=== PATIENT | female | born 1955 | race Caucasian/White ===

== ENCOUNTER 2018-05-21 20:15 | Inpatient (IN) | payer MEDICARE, MEDICAID ==
[~2018-05-21] VITALS: Ht 167.6 cm; Wt 59.9 kg
[2018-05-21 20:25] VITALS: BP 143/66
[2018-05-21] MEDS ORDERED: CARISOPRODOL 350 MG TABLET PO PRN (22:15)
[2018-05-21] MEDS ORDERED: BENZONATATE 100MG CAPSULE PO PRN (22:15)
[2018-05-21] MEDS ORDERED: DEXTROSE 50% WATER 50ML SYRINGE IV PRN (22:15)
[2018-05-21] MEDS ORDERED: MORPHINE SULFATE 4 MG/ML CPJ (NOT FOR IM USE) IV PRN (22:15)
[2018-05-21] MEDS ORDERED: IPRATROPIUM/ALBUTEROL 0.5-3(2.5)MG/3ML NEB HHN PRN (22:15)
[2018-05-21] MEDS ORDERED: PHENOL/SODIUM PHENOLATE 1.4% SRPAY 177ML MM PRN (22:15)
[2018-05-21] MEDS ORDERED: ONDANSETRON HCL 4MG/2ML VIAL IV PRN (22:15)
[2018-05-21] MEDS ORDERED: DOCUSATE SODIUM 250MG CAPSULE PO PRN (22:15)
[2018-05-21 22:21] VITALS: BP 143/67
[2018-05-21] MEDS: BLOOD SUGAR DIAGNOSTIC STRIP TEST SCH (22:30)
[2018-05-21] MEDS: INSULIN LISPRO 100 UNITS/ML SUBCUT SCH (22:56)
[2018-05-21] MEDS: FAMOTIDINE 20MG/2ML VIAL IV SCH (22:59)
[2018-05-21] MEDS: FLUTICASONE PROPIONATE 50MCG/SPRAY BOTTLE BOTHNSTRLS SCH (23:00)
[2018-05-21] MEDS: DILTIAZEM HCL 30MG TABLET PO SCH (23:00)
[2018-05-22] MEDS: DILTIAZEM HCL 30MG TABLET PO SCH ×3 (05:18→21:06)
[2018-05-22] MEDS: BLOOD SUGAR DIAGNOSTIC STRIP TEST SCH ×4 (05:52→21:05)
[2018-05-22] MEDS: INSULIN LISPRO 100 UNITS/ML SUBCUT SCH ×4 (06:00→21:17)
[2018-05-22 08:00] VITALS: BP 148/64
[2018-05-22] MEDS: FAMOTIDINE 20MG/2ML VIAL IV SCH (08:21)
[2018-05-22] MEDS: PANTOPRAZOLE 40MG DR TABLET PO SCH (08:45)
[2018-05-22] MEDS ORDERED: LOSARTAN POTASSIUM 50 MG TABLET PO SCH (09:00)
[2018-05-22] MEDS: FLUTICASONE PROPIONATE 50MCG/SPRAY BOTTLE BOTHNSTRLS SCH ×2 (09:41→21:02)
[2018-05-22] MEDS: DOCUSATE SODIUM 100MG CAPSULE PO SCH ×2 (09:42→16:34)
[2018-05-22 15:14] LABS: CHLORIDE 101 mEq/L (98-107)
[2018-05-22 15:20] LABS: BASOPHILS % 0.1 % (0.0-2.0); EOSINOPHILS % 0.2 % (0.0-5.0); HEMATOCRIT. 38.2 % (36.0-48.0); HEMOGLOBIN. 12.5 g/dL (12.0-16.0); LYMPHOCYTES % 15.8 % (20.0-50.0); MEAN CORPUSCULAR HEMOGLOBIN 30.3 pg (28.0-32.0); MEAN PLATELET VOLUME 6.7 fl (7.4-10.4); NEUTROPHILS % 74.9 % (40.0-76.0); PLATELET 615 x1000/uL (130-400); RED BLOOD CELL COUNT 4.11 mill/uL (4.2-5.4); RED CELL DISTRIBUTION WIDTH 15.1 % (11.6-14.6)
[2018-05-22 20:00] VITALS: BP 99/50
[2018-05-22] MEDS: POLYETHYLENE GLYCOL 3350 (17GM) 1 DOSE PACK PO SCH (21:00)
[2018-05-22] MEDS: ACETAMINOPHEN 325MG TABLET PO PRN (21:18)
[2018-05-23 02:34] VITALS: BP 125/61
[2018-05-23] MEDS: HYDROCODONE/ACETAMINOPHEN 5/325MG TABLET PO PRN ×2 (02:34→17:36)
[2018-05-23] MEDS: DILTIAZEM HCL 30MG TABLET PO SCH ×3 (06:00→22:55)
[2018-05-23 06:04] VITALS: BP 97/48
[2018-05-23] MEDS: INSULIN LISPRO 100 UNITS/ML SUBCUT SCH ×4 (06:04→23:41)
[2018-05-23] MEDS: BLOOD SUGAR DIAGNOSTIC STRIP TEST SCH ×4 (06:04→21:00)
[2018-05-23] MEDS: PANTOPRAZOLE 40MG DR TABLET PO SCH (06:05)
[2018-05-23 07:43] VITALS: BP 105/35
[2018-05-23] MEDS: LOSARTAN POTASSIUM 50 MG TABLET PO SCH (09:00)
[2018-05-23] MEDS: DOCUSATE SODIUM 100MG CAPSULE PO SCH ×2 (09:41→17:20)
[2018-05-23] MEDS: FLUTICASONE PROPIONATE 50MCG/SPRAY BOTTLE BOTHNSTRLS SCH ×2 (09:41→21:00)
[2018-05-23] MEDS: GUAIFENESIN-DM 200MG-20MG/10ML UDC PO PRN (12:46)
[2018-05-23 20:00] VITALS: BP 125/65
[2018-05-23] MEDS: POLYETHYLENE GLYCOL 3350 (17GM) 1 DOSE PACK PO SCH (21:00)
[2018-05-24] MEDS: DILTIAZEM HCL 30MG TABLET PO SCH ×2 (06:42→21:08)
[2018-05-24] MEDS: BLOOD SUGAR DIAGNOSTIC STRIP TEST SCH ×4 (06:42→21:09)
[2018-05-24] MEDS: HYDROCODONE/ACETAMINOPHEN 5/325MG TABLET PO PRN ×4 (06:49→23:04)
[2018-05-24 08:00] VITALS: BP 117/62
[2018-05-24] MEDS: INSULIN LISPRO 100 UNITS/ML SUBCUT SCH ×4 (08:37→21:00)
[2018-05-24] MEDS: LOSARTAN POTASSIUM 50 MG TABLET PO SCH (08:48)
[2018-05-24] MEDS: FAMOTIDINE 20MG TABLET PO SCH ×2 (08:48→21:08)
[2018-05-24] MEDS: DOCUSATE SODIUM 100MG CAPSULE PO SCH ×2 (08:48→17:27)
[2018-05-24] MEDS: FLUTICASONE PROPIONATE 50MCG/SPRAY BOTTLE BOTHNSTRLS SCH ×2 (08:59→21:08)
[2018-05-24 09:06] LABS: BASOPHILS % 0.1 % (0.0-2.0); CHLORIDE 105 mEq/L (98-107); EOSINOPHILS % 6.1 % (0.0-5.0); HEMATOCRIT. 37.8 % (36.0-48.0); HEMOGLOBIN. 12.4 g/dL (12.0-16.0); LYMPHOCYTES % 19.6 % (20.0-50.0); MEAN CORPUSCULAR HEMOGLOBIN 30.4 pg (28.0-32.0); MEAN CORPUSCULAR VOLUME 92.8 fL (81.0-99.0); MEAN PLATELET VOLUME 6.6 fl (7.4-10.4); MONOCYTES % 8.2 % (2.0-8.0); PLATELET 502 x1000/uL (130-400); RED BLOOD CELL COUNT 4.08 mill/uL (4.2-5.4)
[2018-05-24 09:11] LABS: PHOSPHORUS 3.2 mg/dL (2.5-4.9)
[2018-05-24 09:12] LABS: LDL CHOLESTEROL 99 mg/dL (5-100); TOTAL IRON BINDING CAPACITY 219 ug/dL (250-450)
[2018-05-24 09:14] LABS: HDL CHOLESTEROL 33 mg/dL (40-59)
[2018-05-24 09:47] LABS: FOLIC ACID (FOLATE) SERUM 8.1 ng/mL (>5.38)
[2018-05-24 13:12] LABS: CLARITY URINE CLEAR (CLEAR); COLOR URINE DARK YELLOW (YELLOW); KETONES URINE 1+ (NEGATIVE); LEUKOCYTE ESTERASE URINE 3+ (NEGATIVE); NITRITE URINE NEGATIVE (NEGATIVE); OCCULT BLOOD URINE NEGATIVE (NEGATIVE); PH URINE 6.5 (4.5-8.0); PROTEIN URINE NEGATIVE (NEGATIVE); SPECIFIC GRAVITY URINE 1.022 (1.005-1.030)
[2018-05-24] MEDS: CYANOCOBALAMIN 1000MCG/ML VIAL IM SCH (17:27)
[2018-05-24] MEDS: FERROUS SULFATE 325MG TABLET PO SCH (17:27)
[2018-05-24] MEDS: LIDOCAINE 5% PATCH TOP SCH (17:28)
[2018-05-24 20:00] VITALS: BP 95/44
[2018-05-24] MEDS: POLYETHYLENE GLYCOL 3350 (17GM) 1 DOSE PACK PO SCH (21:00)
[2018-05-25] MEDS: BLOOD SUGAR DIAGNOSTIC STRIP TEST SCH ×4 (06:43→21:00)
[2018-05-25] MEDS: HYDROCODONE/ACETAMINOPHEN 5/325MG TABLET PO PRN ×2 (06:45→10:57)
[2018-05-25] MEDS: INSULIN LISPRO 100 UNITS/ML SUBCUT SCH ×4 (07:41→22:52)
[2018-05-25 08:00] VITALS: BP 130/50
[2018-05-25] MEDS: ASCORBIC ACID 500 MG TABLET PO SCH (09:13)
[2018-05-25] MEDS: DOCUSATE SODIUM 100MG CAPSULE PO SCH ×2 (09:13→17:21)
[2018-05-25] MEDS: FERROUS SULFATE 325MG TABLET PO SCH ×3 (09:13→17:21)
[2018-05-25] MEDS: FAMOTIDINE 20MG TABLET PO SCH ×2 (09:13→22:11)
[2018-05-25] MEDS: LOSARTAN POTASSIUM 50 MG TABLET PO SCH (09:14)
[2018-05-25] MEDS: CYANOCOBALAMIN 1000MCG/ML VIAL IM SCH (09:14)
[2018-05-25] MEDS: LIDOCAINE 5% PATCH TOP SCH ×2 (09:14→22:11)
[2018-05-25] MEDS: DILTIAZEM HCL 30MG TABLET PO SCH ×2 (09:15→21:00)
[2018-05-25] MEDS: GUAIFENESIN-DM 200MG-20MG/10ML UDC PO PRN (19:51)
[2018-05-25 20:00] VITALS: BP 106/43
[2018-05-25] MEDS ORDERED: LIDOCAINE 5% PATCH TOP SCH ×2 (21:00)
[2018-05-25] MEDS: POLYETHYLENE GLYCOL 3350 (17GM) 1 DOSE PACK PO SCH (22:05)
[2018-05-26] MEDS: BLOOD SUGAR DIAGNOSTIC STRIP TEST SCH ×4 (06:57→21:13)
[2018-05-26] MEDS: INSULIN LISPRO 100 UNITS/ML SUBCUT SCH ×4 (06:59→21:22)
[2018-05-26 08:00] VITALS: BP 127/53
[2018-05-26] MEDS: DILTIAZEM HCL 30MG TABLET PO SCH (08:08)
[2018-05-26] MEDS: CYANOCOBALAMIN 1000MCG/ML VIAL IM SCH (08:09)
[2018-05-26] MEDS: FAMOTIDINE 20MG TABLET PO SCH ×2 (08:10→20:35)
[2018-05-26] MEDS: LOSARTAN POTASSIUM 50 MG TABLET PO SCH (08:10)
[2018-05-26] MEDS: DOCUSATE SODIUM 100MG CAPSULE PO SCH ×2 (08:10→16:46)
[2018-05-26] MEDS: FERROUS SULFATE 325MG TABLET PO SCH ×3 (08:10→16:45)
[2018-05-26] MEDS: ASCORBIC ACID 500 MG TABLET PO SCH (08:10)
[2018-05-26] MEDS: HYDROCODONE/ACETAMINOPHEN 5/325MG TABLET PO PRN (10:39)
[2018-05-26] MEDS ORDERED: NA PHOS,M-B/NA PHOS,DI-BA ENEMA 118ML PR SCH (11:15)
[2018-05-26] MEDS: LACTULOSE 20G/30ML UDC PO SCH ×2 (11:15→16:45)
[2018-05-26] MEDS: AMLODIPINE 2.5MG TABLET PO SCH ×2 (11:24→20:36)
[2018-05-26 20:00] VITALS: BP 100/45
[2018-05-26] MEDS: LIDOCAINE 5% PATCH TOP SCH (20:35)
[2018-05-26] MEDS: POLYETHYLENE GLYCOL 3350 (17GM) 1 DOSE PACK PO SCH (20:36)
[2018-05-27] MEDS: HYDROCODONE/ACETAMINOPHEN 5/325MG TABLET PO PRN ×3 (03:50→22:00)
[2018-05-27] MEDS: BLOOD SUGAR DIAGNOSTIC STRIP TEST SCH ×4 (06:06→21:56)
[2018-05-27] MEDS: INSULIN LISPRO 100 UNITS/ML SUBCUT SCH ×4 (06:48→21:14)
[2018-05-27 08:00] VITALS: BP 102/53
[2018-05-27] MEDS: ASCORBIC ACID 500 MG TABLET PO SCH (08:22)
[2018-05-27] MEDS: CYANOCOBALAMIN 1000MCG/ML VIAL IM SCH (08:22)
[2018-05-27] MEDS: FAMOTIDINE 20MG TABLET PO SCH ×2 (08:22→21:55)
[2018-05-27] MEDS: DOCUSATE SODIUM 100MG CAPSULE PO SCH ×2 (08:22→17:48)
[2018-05-27] MEDS: FERROUS SULFATE 325MG TABLET PO SCH ×3 (08:22→17:48)
[2018-05-27] MEDS: LOSARTAN POTASSIUM 50 MG TABLET PO SCH (08:24)
[2018-05-27] MEDS: AMLODIPINE 2.5MG TABLET PO SCH ×2 (08:25→21:56)
[2018-05-27] MEDS ORDERED: NA PHOS,M-B/NA PHOS,DI-BA ENEMA 118ML PR PRN (09:00)
[2018-05-27] MEDS: GUAIFENESIN-DM 200MG-20MG/10ML UDC PO PRN (18:51)
[2018-05-27 20:00] VITALS: BP 107/48
[2018-05-27] MEDS ORDERED: SENNOSIDES/DOCUSATE SOD 8.6/50MG TABLET PO PRN (21:00)
[2018-05-27] MEDS: LIDOCAINE 5% PATCH TOP SCH (21:56)
[2018-05-27] MEDS: POLYETHYLENE GLYCOL 3350 (17GM) 1 DOSE PACK PO SCH (21:59)
[2018-05-28] MEDS: HYDROCODONE/ACETAMINOPHEN 5/325MG TABLET PO PRN ×3 (05:24→21:15)
[2018-05-28] MEDS: BLOOD SUGAR DIAGNOSTIC STRIP TEST SCH ×4 (06:08→21:15)
[2018-05-28 07:38] LABS: CHLORIDE 107 mEq/L (98-107)
[2018-05-28 08:00] VITALS: BP 138/54
[2018-05-28] MEDS: LOSARTAN POTASSIUM 50 MG TABLET PO SCH (09:00)
[2018-05-28] MEDS: CYANOCOBALAMIN 1000MCG/ML VIAL IM SCH (09:00)
[2018-05-28] MEDS: FERROUS SULFATE 325MG TABLET PO SCH ×3 (09:00→16:46)
[2018-05-28] MEDS: INSULIN LISPRO 100 UNITS/ML SUBCUT SCH ×4 (09:00→21:30)
[2018-05-28] MEDS: DOCUSATE SODIUM 100MG CAPSULE PO SCH ×2 (09:00→16:46)
[2018-05-28] MEDS: AMLODIPINE 2.5MG TABLET PO SCH ×2 (09:01→21:15)
[2018-05-28] MEDS: FAMOTIDINE 20MG TABLET PO SCH ×2 (09:01→21:15)
[2018-05-28] MEDS: ASCORBIC ACID 500 MG TABLET PO SCH (09:01)
[2018-05-28 12:10] LABS: BASOPHILS % 0.9 % (0.0-2.0); EOSINOPHILS % 4.9 % (0.0-5.0); HEMATOCRIT. 34.4 % (36.0-48.0); HEMOGLOBIN. 11.3 g/dL (12.0-16.0); LYMPHOCYTES % 16.1 % (20.0-50.0); MEAN CORPUSCULAR HEMOGLOBIN 30.5 pg (28.0-32.0); MEAN CORPUSCULAR VOLUME 92.9 fL (81.0-99.0); MEAN PLATELET VOLUME 7.3 fl (7.4-10.4); MONOCYTES % 13.1 % (2.0-8.0); PLATELET 359 x1000/uL (130-400); RED CELL DISTRIBUTION WIDTH 15.8 % (11.6-14.6)
[2018-05-28 14:18] LABS: 25-HYDROXY VITAMIN D3 19 ng/mL (.)
[2018-05-28 20:00] VITALS: BP 119/50
[2018-05-28] MEDS: POLYETHYLENE GLYCOL 3350 (17GM) 1 DOSE PACK PO SCH (21:13)
[2018-05-28] MEDS: LIDOCAINE 5% PATCH TOP SCH (21:14)
[2018-05-29] MEDS: HYDROCODONE/ACETAMINOPHEN 5/325MG TABLET PO PRN ×2 (05:57→16:58)
[2018-05-29] MEDS: BLOOD SUGAR DIAGNOSTIC STRIP TEST SCH ×4 (05:57→21:35)
[2018-05-29 06:58] LABS: BASOPHILS % 0.9 % (0.0-2.0); EOSINOPHILS % 7.5 % (0.0-5.0); HEMATOCRIT. 33.6 % (36.0-48.0); HEMOGLOBIN. 11.2 g/dL (12.0-16.0); LYMPHOCYTES % 31.1 % (20.0-50.0); MEAN CORPUSCULAR HEMOGLOBIN 30.8 pg (28.0-32.0); MEAN CORPUSCULAR VOLUME 92.5 fL (81.0-99.0); MEAN PLATELET VOLUME 7.4 fl (7.4-10.4); MONOCYTES % 14.8 % (2.0-8.0); NEUTROPHILS % 45.7 % (40.0-76.0); PLATELET 346 x1000/uL (130-400); RED BLOOD CELL COUNT 3.63 mill/uL (4.2-5.4)
[2018-05-29 07:47] LABS: CHLORIDE 106 mEq/L (98-107)
[2018-05-29 08:00] VITALS: BP 125/54
[2018-05-29 08:01] LABS: PHOSPHORUS 4.1 mg/dL (2.5-4.9)
[2018-05-29] MEDS: CYANOCOBALAMIN 1000MCG/ML VIAL IM SCH (08:12)
[2018-05-29] MEDS: DOCUSATE SODIUM 100MG CAPSULE PO SCH ×2 (08:12→16:58)
[2018-05-29] MEDS: ASCORBIC ACID 500 MG TABLET PO SCH (08:12)
[2018-05-29] MEDS: FERROUS SULFATE 325MG TABLET PO SCH ×3 (08:12→16:58)
[2018-05-29] MEDS: LOSARTAN POTASSIUM 50 MG TABLET PO SCH (08:12)
[2018-05-29] MEDS: FAMOTIDINE 20MG TABLET PO SCH ×2 (08:12→21:34)
[2018-05-29] MEDS: AMLODIPINE 2.5MG TABLET PO SCH ×2 (08:13→21:34)
[2018-05-29] MEDS: INSULIN LISPRO 100 UNITS/ML SUBCUT SCH ×4 (08:14→21:39)
[2018-05-29] MEDS ORDERED: LIDOCAINE 5% PATCH TOP SCH (10:00)
[2018-05-29] MEDS ORDERED: ERGOCALCIFEROL 50000UNITS CAPSULE PO SCH (10:00)
[2018-05-29] MEDS: ERGOCALCIFEROL 50000UNITS CAPSULE PO SCH (10:42)
[2018-05-29] MEDS: LACTULOSE 20G/30ML UDC PO SCH ×3 (10:43→17:00)
[2018-05-29 20:00] VITALS: BP 120/78
[2018-05-29] MEDS: POLYETHYLENE GLYCOL 3350 (17GM) 1 DOSE PACK PO SCH (21:00)
[2018-05-29] MEDS: LIDOCAINE 5% PATCH TOP SCH (21:34)
[2018-05-30] MEDS: HYDROCODONE/ACETAMINOPHEN 5/325MG TABLET PO PRN ×2 (01:12→08:23)
[2018-05-30 06:41] LABS: EOSINOPHILS % 6.8 % (0.0-5.0); HEMOGLOBIN. 11.2 g/dL (12.0-16.0); LYMPHOCYTES % 26.1 % (20.0-50.0); MEAN CORPUSCULAR HEMOGLOBIN 30.3 pg (28.0-32.0); MEAN CORPUSCULAR VOLUME 92.1 fL (81.0-99.0); MEAN PLATELET VOLUME 7.1 fl (7.4-10.4); MONOCYTES % 14.5 % (2.0-8.0); NEUTROPHILS % 51.6 % (40.0-76.0); PLATELET 339 x1000/uL (130-400); RED BLOOD CELL COUNT 3.69 mill/uL (4.2-5.4); RED CELL DISTRIBUTION WIDTH 15.8 % (11.6-14.6)
[2018-05-30 07:31] LABS: CHLORIDE 104 mEq/L (98-107)
[2018-05-30 07:53] VITALS: BP 146/77
[2018-05-30] MEDS: CYANOCOBALAMIN 1000MCG/ML VIAL IM SCH (08:22)
[2018-05-30] MEDS: LOSARTAN POTASSIUM 50 MG TABLET PO SCH (08:22)
[2018-05-30] MEDS: ASCORBIC ACID 500 MG TABLET PO SCH (08:22)
[2018-05-30] MEDS: FERROUS SULFATE 325MG TABLET PO SCH ×3 (08:22→16:46)
[2018-05-30] MEDS: AMLODIPINE 2.5MG TABLET PO SCH ×2 (08:22→20:40)
[2018-05-30] MEDS: DOCUSATE SODIUM 100MG CAPSULE PO SCH ×2 (08:22→16:46)
[2018-05-30] MEDS: FAMOTIDINE 20MG TABLET PO SCH ×2 (08:29→20:39)
[2018-05-30] MEDS: INSULIN LISPRO 100 UNITS/ML SUBCUT SCH ×4 (09:00→21:19)
[2018-05-30] MEDS: TRAMADOL HCL/ACETAMINOPHEN 37.5/325MG TABLET PO SCH ×3 (09:30→16:46)
[2018-05-30] MEDS: BLOOD SUGAR DIAGNOSTIC STRIP TEST SCH ×3 (11:15→21:09)
[2018-05-30] MEDS: POLYETHYLENE GLYCOL 3350 (17GM) 1 DOSE PACK PO SCH (19:08)
[2018-05-30 20:00] VITALS: BP 97/63
[2018-05-30] MEDS: LIDOCAINE 5% PATCH TOP SCH (20:40)
[2018-05-31] MEDS: HYDROCODONE/ACETAMINOPHEN 5/325MG TABLET PO PRN (02:38)
[2018-05-31] MEDS: BLOOD SUGAR DIAGNOSTIC STRIP TEST SCH ×4 (06:12→21:19)
[2018-05-31] MEDS: INSULIN LISPRO 100 UNITS/ML SUBCUT SCH ×4 (06:30→22:02)
[2018-05-31 08:00] VITALS: BP 117/46
[2018-05-31] MEDS: AMLODIPINE 2.5MG TABLET PO SCH ×2 (08:30→21:00)
[2018-05-31] MEDS: FERROUS SULFATE 325MG TABLET PO SCH ×3 (08:30→17:42)
[2018-05-31] MEDS: FAMOTIDINE 20MG TABLET PO SCH ×2 (08:31→21:14)
[2018-05-31] MEDS: ASCORBIC ACID 500 MG TABLET PO SCH (08:31)
[2018-05-31] MEDS: TRAMADOL HCL/ACETAMINOPHEN 37.5/325MG TABLET PO SCH ×3 (08:32→17:49)
[2018-05-31] MEDS: LOSARTAN POTASSIUM 50 MG TABLET PO SCH (08:38)
[2018-05-31] MEDS: POLYETHYLENE GLYCOL 3350 (17GM) 1 DOSE PACK PO SCH ×2 (10:27→17:49)
[2018-05-31] MEDS: DOCUSATE SODIUM 100MG CAPSULE PO SCH ×2 (10:27→17:49)
[2018-05-31 13:00] VITALS: BP 121/64
[2018-05-31] MEDS: LACTULOSE 20G/30ML UDC PO SCH ×2 (15:17→21:14)
[2018-05-31] MEDS: BISACODYL 10MG SUPP PR SCH (15:30)
[2018-05-31 20:00] VITALS: BP 109/35
[2018-05-31] MEDS: LIDOCAINE 5% PATCH TOP SCH (21:15)
[2018-06-01] MEDS: BLOOD SUGAR DIAGNOSTIC STRIP TEST SCH ×4 (06:18→21:00)
[2018-06-01] MEDS: INSULIN LISPRO 100 UNITS/ML SUBCUT SCH ×4 (06:45→21:00)
[2018-06-01] MEDS: LOSARTAN POTASSIUM 50 MG TABLET PO SCH (07:52)
[2018-06-01] MEDS: AMLODIPINE 2.5MG TABLET PO SCH ×2 (07:53→21:00)
[2018-06-01] MEDS: BISACODYL 10MG SUPP PR SCH (07:53)
[2018-06-01] MEDS: POLYETHYLENE GLYCOL 3350 (17GM) 1 DOSE PACK PO SCH ×2 (07:53→17:06)
[2018-06-01] MEDS: ASCORBIC ACID 500 MG TABLET PO SCH (07:54)
[2018-06-01] MEDS: FAMOTIDINE 20MG TABLET PO SCH ×2 (07:55→22:20)
[2018-06-01] MEDS: DOCUSATE SODIUM 100MG CAPSULE PO SCH ×2 (07:55→17:06)
[2018-06-01] MEDS: TRAMADOL HCL/ACETAMINOPHEN 37.5/325MG TABLET PO SCH ×3 (07:55→17:08)
[2018-06-01] MEDS: FERROUS SULFATE 325MG TABLET PO SCH ×3 (07:55→17:06)
[2018-06-01 08:00] VITALS: BP 111/32
[2018-06-01 20:00] VITALS: BP 105/56
[2018-06-01] MEDS: GABAPENTIN 100MG CAPSULE PO SCH (22:20)
[2018-06-01] MEDS: LIDOCAINE 5% PATCH TOP SCH (22:20)
[2018-06-02] MEDS: BLOOD SUGAR DIAGNOSTIC STRIP TEST SCH ×4 (07:03→21:53)
[2018-06-02] MEDS: GABAPENTIN 100MG CAPSULE PO SCH ×2 (07:03→13:00)
[2018-06-02] MEDS: INSULIN LISPRO 100 UNITS/ML SUBCUT SCH ×4 (07:04→21:00)
[2018-06-02 07:51] LABS: BASOPHILS % 1.3 % (0.0-2.0); EOSINOPHILS % 6.5 % (0.0-5.0); HEMATOCRIT. 33.7 % (36.0-48.0); HEMOGLOBIN. 11.1 g/dL (12.0-16.0); LYMPHOCYTES % 22.8 % (20.0-50.0); MEAN CORPUSCULAR HEMOGLOBIN 30.4 pg (28.0-32.0); MEAN CORPUSCULAR VOLUME 92.1 fL (81.0-99.0); MEAN PLATELET VOLUME 7.1 fl (7.4-10.4); MONOCYTES % 8.3 % (2.0-8.0); NEUTROPHILS % 61.1 % (40.0-76.0); PLATELET 330 x1000/uL (130-400); RED BLOOD CELL COUNT 3.67 mill/uL (4.2-5.4); RED CELL DISTRIBUTION WIDTH 16.1 % (11.6-14.6)
[2018-06-02 08:00] VITALS: BP 136/47
[2018-06-02 08:02] LABS: CHLORIDE 107 mEq/L (98-107)
[2018-06-02] MEDS: BISACODYL 10MG SUPP PR SCH (09:00)
[2018-06-02] MEDS: FAMOTIDINE 20MG TABLET PO SCH ×2 (09:27→21:52)
[2018-06-02] MEDS: DOCUSATE SODIUM 100MG CAPSULE PO SCH ×2 (09:27→17:19)
[2018-06-02] MEDS: FERROUS SULFATE 325MG TABLET PO SCH ×3 (09:27→17:19)
[2018-06-02] MEDS: ASCORBIC ACID 500 MG TABLET PO SCH (09:27)
[2018-06-02] MEDS: POLYETHYLENE GLYCOL 3350 (17GM) 1 DOSE PACK PO SCH ×2 (09:28→17:19)
[2018-06-02] MEDS: LOSARTAN POTASSIUM 50 MG TABLET PO SCH (09:28)
[2018-06-02] MEDS: AMLODIPINE 2.5MG TABLET PO SCH ×2 (09:28→21:52)
[2018-06-02] MEDS: TRAMADOL HCL/ACETAMINOPHEN 37.5/325MG TABLET PO SCH ×3 (09:29→17:19)
[2018-06-02] MEDS: PREGABALIN 25MG CAPSULE PO SCH ×2 (13:00→17:19)
[2018-06-02 20:00] VITALS: BP 127/45
[2018-06-02] MEDS: LIDOCAINE 5% PATCH TOP SCH (21:53)
[2018-06-03] MEDS: BLOOD SUGAR DIAGNOSTIC STRIP TEST SCH ×4 (06:30→21:22)
[2018-06-03 08:00] VITALS: BP 132/63
[2018-06-03] MEDS: FERROUS SULFATE 325MG TABLET PO SCH ×3 (08:48→17:16)
[2018-06-03] MEDS: DOCUSATE SODIUM 100MG CAPSULE PO SCH ×2 (08:48→17:16)
[2018-06-03] MEDS: FAMOTIDINE 20MG TABLET PO SCH ×2 (08:48→20:54)
[2018-06-03] MEDS: ASCORBIC ACID 500 MG TABLET PO SCH (08:48)
[2018-06-03] MEDS: LOSARTAN POTASSIUM 50 MG TABLET PO SCH (08:48)
[2018-06-03] MEDS: AMLODIPINE 2.5MG TABLET PO SCH ×2 (08:49→20:54)
[2018-06-03] MEDS: POLYETHYLENE GLYCOL 3350 (17GM) 1 DOSE PACK PO SCH ×2 (08:49→17:16)
[2018-06-03] MEDS: PREGABALIN 25MG CAPSULE PO SCH ×3 (08:49→17:16)
[2018-06-03] MEDS: INSULIN LISPRO 100 UNITS/ML SUBCUT SCH ×4 (08:50→21:36)
[2018-06-03] MEDS: OXYCODONE HCL 5MG TABLET PO SCH ×3 (08:52→20:55)
[2018-06-03] MEDS: BISACODYL 10MG SUPP PR SCH (08:57)
[2018-06-03] MEDS: GUAIFENESIN-DM 200MG-20MG/10ML UDC PO PRN (08:57)
[2018-06-03 20:00] VITALS: BP 132/44
[2018-06-03] MEDS: LIDOCAINE 5% PATCH TOP SCH (20:55)
[2018-06-04] MEDS: OXYCODONE HCL 5MG TABLET PO SCH ×4 (02:45→21:53)
[2018-06-04] MEDS: BLOOD SUGAR DIAGNOSTIC STRIP TEST SCH ×4 (06:23→21:38)
[2018-06-04] MEDS: INSULIN LISPRO 100 UNITS/ML SUBCUT SCH ×4 (06:55→22:01)
[2018-06-04 08:00] VITALS: BP 109/58
[2018-06-04] MEDS: FAMOTIDINE 20MG TABLET PO SCH ×2 (08:15→21:52)
[2018-06-04] MEDS: FERROUS SULFATE 325MG TABLET PO SCH ×3 (08:17→18:44)
[2018-06-04] MEDS: DOCUSATE SODIUM 100MG CAPSULE PO SCH ×2 (08:17→18:45)
[2018-06-04] MEDS: PREGABALIN 25MG CAPSULE PO SCH ×3 (08:17→18:44)
[2018-06-04] MEDS: ASCORBIC ACID 500 MG TABLET PO SCH (08:17)
[2018-06-04] MEDS: BISACODYL 10MG SUPP PR SCH ×2 (08:17→08:23)
[2018-06-04] MEDS: POLYETHYLENE GLYCOL 3350 (17GM) 1 DOSE PACK PO SCH ×2 (08:23→18:45)
[2018-06-04] MEDS: AMLODIPINE 2.5MG TABLET PO SCH ×3 (08:24→21:52)
[2018-06-04] MEDS: LOSARTAN POTASSIUM 50 MG TABLET PO SCH ×2 (08:24→09:44)
[2018-06-04] MEDS: HYDROCODONE/ACETAMINOPHEN 5/325MG TABLET PO PRN (13:32)
[2018-06-04 20:00] VITALS: BP 121/52
[2018-06-04] MEDS: LIDOCAINE 5% PATCH TOP SCH (21:53)
[2018-06-05] MEDS: OXYCODONE HCL 5MG TABLET PO SCH ×4 (03:00→21:00)
[2018-06-05] MEDS: BLOOD SUGAR DIAGNOSTIC STRIP TEST SCH ×4 (06:48→21:00)
[2018-06-05 07:39] LABS: BASOPHILS % 0.9 % (0.0-2.0); EOSINOPHILS % 8.7 % (0.0-5.0); HEMATOCRIT. 33.6 % (36.0-48.0); HEMOGLOBIN. 11.2 g/dL (12.0-16.0); MEAN CORPUSCULAR HEMOGLOBIN 30.5 pg (28.0-32.0); MEAN CORPUSCULAR VOLUME 91.5 fL (81.0-99.0); MONOCYTES % 9.4 % (2.0-8.0); PLATELET 279 x1000/uL (130-400); RED BLOOD CELL COUNT 3.67 mill/uL (4.2-5.4); RED CELL DISTRIBUTION WIDTH 15.6 % (11.6-14.6)
[2018-06-05 08:00] VITALS: BP 107/53
[2018-06-05] MEDS: LOSARTAN POTASSIUM 50 MG TABLET PO SCH (09:00)
[2018-06-05] MEDS: AMLODIPINE 2.5MG TABLET PO SCH ×2 (09:00→21:00)
[2018-06-05] MEDS: BISACODYL 10MG SUPP PR SCH (09:00)
[2018-06-05] MEDS: ERGOCALCIFEROL 50000UNITS CAPSULE PO SCH (09:04)
[2018-06-05] MEDS: POLYETHYLENE GLYCOL 3350 (17GM) 1 DOSE PACK PO SCH ×2 (09:04→18:24)
[2018-06-05] MEDS: PREGABALIN 25MG CAPSULE PO SCH ×3 (09:04→18:17)
[2018-06-05] MEDS: DOCUSATE SODIUM 100MG CAPSULE PO SCH ×2 (09:05→18:23)
[2018-06-05] MEDS: FERROUS SULFATE 325MG TABLET PO SCH ×3 (09:05→18:16)
[2018-06-05] MEDS: ASCORBIC ACID 500 MG TABLET PO SCH (09:05)
[2018-06-05] MEDS: FAMOTIDINE 20MG TABLET PO SCH ×2 (09:05→22:27)
[2018-06-05 10:15] LABS: CHLORIDE 106 mEq/L (98-107)
[2018-06-05] MEDS: HYDROCODONE/ACETAMINOPHEN 5/325MG TABLET PO PRN (12:49)
[2018-06-05] MEDS: INSULIN LISPRO 100 UNITS/ML SUBCUT SCH ×3 (13:44→21:00)
[2018-06-05 20:00] VITALS: BP 141/74
[2018-06-05] MEDS: LIDOCAINE 5% PATCH TOP SCH (21:00)
[2018-06-06] MEDS: OXYCODONE HCL 5MG TABLET PO SCH ×4 (04:42→21:00)
[2018-06-06] MEDS: BLOOD SUGAR DIAGNOSTIC STRIP TEST SCH ×4 (06:52→21:58)
[2018-06-06] MEDS: INSULIN LISPRO 100 UNITS/ML SUBCUT SCH ×4 (06:53→21:00)
[2018-06-06 07:28] LABS: BASOPHILS % 0.9 % (0.0-2.0); EOSINOPHILS % 8.5 % (0.0-5.0); HEMATOCRIT. 33.7 % (36.0-48.0); HEMOGLOBIN. 10.9 g/dL (12.0-16.0); LYMPHOCYTES % 18.4 % (20.0-50.0); MEAN CORPUSCULAR HEMOGLOBIN 29.8 pg (28.0-32.0); MEAN CORPUSCULAR VOLUME 92.2 fL (81.0-99.0); MEAN PLATELET VOLUME 7.1 fl (7.4-10.4); MONOCYTES % 8.9 % (2.0-8.0); NEUTROPHILS % 63.3 % (40.0-76.0); PLATELET 268 x1000/uL (130-400); RED BLOOD CELL COUNT 3.65 mill/uL (4.2-5.4); RED CELL DISTRIBUTION WIDTH 15.8 % (11.6-14.6)
[2018-06-06 08:00] VITALS: BP 135/63
[2018-06-06 08:00] LABS: CHLORIDE 106 mEq/L (98-107)
[2018-06-06] MEDS: BISACODYL 10MG SUPP PR SCH (09:00)
[2018-06-06] MEDS ORDERED: CYANOCOBALAMIN 1000MCG/ML VIAL IM SCH (09:00)
[2018-06-06] MEDS: POLYETHYLENE GLYCOL 3350 (17GM) 1 DOSE PACK PO SCH ×2 (09:16→17:00)
[2018-06-06] MEDS: DOCUSATE SODIUM 100MG CAPSULE PO SCH ×2 (09:17→18:58)
[2018-06-06] MEDS: PREGABALIN 25MG CAPSULE PO SCH (09:19)
[2018-06-06] MEDS: FAMOTIDINE 20MG TABLET PO SCH ×2 (09:19→21:56)
[2018-06-06] MEDS: AMLODIPINE 2.5MG TABLET PO SCH ×2 (09:19→21:56)
[2018-06-06] MEDS: FERROUS SULFATE 325MG TABLET PO SCH ×3 (09:20→18:58)
[2018-06-06] MEDS: ASCORBIC ACID 500 MG TABLET PO SCH (09:20)
[2018-06-06] MEDS: LOSARTAN POTASSIUM 50 MG TABLET PO SCH (13:07)
[2018-06-06 20:00] VITALS: BP 120/78
[2018-06-06] MEDS: ACETAMINOPHEN 325MG TABLET PO PRN (21:57)
[2018-06-06] MEDS: LIDOCAINE 5% PATCH TOP SCH (21:57)
[2018-06-07] MEDS: BLOOD SUGAR DIAGNOSTIC STRIP TEST SCH ×4 (06:34→20:50)
[2018-06-07] MEDS: OXYCODONE HCL 5MG TABLET PO SCH ×4 (06:35→20:45)
[2018-06-07 08:00] VITALS: BP 135/69
[2018-06-07] MEDS: ASCORBIC ACID 500 MG TABLET PO SCH (08:53)
[2018-06-07] MEDS: FERROUS SULFATE 325MG TABLET PO SCH ×3 (08:53→17:06)
[2018-06-07] MEDS: FAMOTIDINE 20MG TABLET PO SCH ×2 (08:53→20:45)
[2018-06-07] MEDS: DOCUSATE SODIUM 100MG CAPSULE PO SCH ×2 (08:53→17:05)
[2018-06-07] MEDS: POLYETHYLENE GLYCOL 3350 (17GM) 1 DOSE PACK PO SCH ×2 (08:54→17:06)
[2018-06-07] MEDS: LOSARTAN POTASSIUM 50 MG TABLET PO SCH (08:54)
[2018-06-07] MEDS: INSULIN LISPRO 100 UNITS/ML SUBCUT SCH ×4 (08:54→21:34)
[2018-06-07] MEDS: BISACODYL 10MG SUPP PR SCH (08:55)
[2018-06-07] MEDS: AMLODIPINE 2.5MG TABLET PO SCH ×2 (09:00→20:45)
[2018-06-07] MEDS: GUAIFENESIN-DM 200MG-20MG/10ML UDC PO PRN (11:05)
[2018-06-07 20:00] VITALS: BP 100/45
[2018-06-07] MEDS: LIDOCAINE 5% PATCH TOP SCH (20:45)
[2018-06-08] MEDS: OXYCODONE HCL 5MG TABLET PO SCH ×2 (02:40→09:39)
[2018-06-08] MEDS: BLOOD SUGAR DIAGNOSTIC STRIP TEST SCH ×4 (06:08→21:00)
[2018-06-08] MEDS: INSULIN LISPRO 100 UNITS/ML SUBCUT SCH ×4 (06:34→22:42)
[2018-06-08] MEDS: HYDROCODONE/ACETAMINOPHEN 5/325MG TABLET PO PRN ×2 (06:54→17:45)
[2018-06-08 07:52] LABS: BASOPHILS % 0.8 % (0.0-2.0); EOSINOPHILS % 7.2 % (0.0-5.0); HEMATOCRIT. 37.7 % (36.0-48.0); HEMOGLOBIN. 12.3 g/dL (12.0-16.0); LYMPHOCYTES % 22.8 % (20.0-50.0); MEAN CORPUSCULAR HEMOGLOBIN 29.8 pg (28.0-32.0); MEAN CORPUSCULAR VOLUME 91.6 fL (81.0-99.0); MEAN PLATELET VOLUME 6.9 fl (7.4-10.4); MONOCYTES % 10.3 % (2.0-8.0); NEUTROPHILS % 58.9 % (40.0-76.0); PLATELET 348 x1000/uL (130-400); RED BLOOD CELL COUNT 4.11 mill/uL (4.2-5.4); RED CELL DISTRIBUTION WIDTH 15.5 % (11.6-14.6)
[2018-06-08 08:00] VITALS: BP 124/66
[2018-06-08 08:01] LABS: CHLORIDE 105 mEq/L (98-107)
[2018-06-08] MEDS: BISACODYL 10MG SUPP PR SCH (09:00)
[2018-06-08] MEDS: DOCUSATE SODIUM 100MG CAPSULE PO SCH ×2 (09:34→17:44)
[2018-06-08] MEDS: LOSARTAN POTASSIUM 50 MG TABLET PO SCH (09:34)
[2018-06-08] MEDS: POLYETHYLENE GLYCOL 3350 (17GM) 1 DOSE PACK PO SCH ×2 (09:34→17:44)
[2018-06-08] MEDS: ASCORBIC ACID 500 MG TABLET PO SCH (09:34)
[2018-06-08] MEDS: AMLODIPINE 2.5MG TABLET PO SCH ×2 (09:35→22:24)
[2018-06-08] MEDS: FERROUS SULFATE 325MG TABLET PO SCH ×3 (09:35→17:44)
[2018-06-08] MEDS: FAMOTIDINE 20MG TABLET PO SCH ×2 (09:35→22:19)
[2018-06-08 20:08] VITALS: BP 107/55
[2018-06-08] MEDS: LIDOCAINE 5% PATCH TOP SCH (22:25)
[2018-06-08] MEDS: ACETAMINOPHEN 325MG TABLET PO PRN (22:40)
[2018-06-09 08:00] VITALS: BP 141/66
[2018-06-09] MEDS: AMLODIPINE 2.5MG TABLET PO SCH ×2 (08:25→21:12)
[2018-06-09] MEDS: LOSARTAN POTASSIUM 50 MG TABLET PO SCH (08:27)
[2018-06-09] MEDS: ASCORBIC ACID 500 MG TABLET PO SCH (08:27)
[2018-06-09] MEDS: INSULIN LISPRO 100 UNITS/ML SUBCUT SCH ×4 (08:27→21:31)
[2018-06-09] MEDS: BISACODYL 10MG SUPP PR SCH (08:27)
[2018-06-09] MEDS: FAMOTIDINE 20MG TABLET PO SCH ×2 (08:27→21:12)
[2018-06-09] MEDS: TRAMADOL HCL/ACETAMINOPHEN 37.5/325MG TABLET PO SCH ×3 (08:27→17:24)
[2018-06-09] MEDS: POLYETHYLENE GLYCOL 3350 (17GM) 1 DOSE PACK PO SCH ×2 (08:27→17:23)
[2018-06-09] MEDS: DOCUSATE SODIUM 100MG CAPSULE PO SCH ×2 (08:27→17:23)
[2018-06-09] MEDS: FERROUS SULFATE 325MG TABLET PO SCH ×3 (08:27→17:23)
[2018-06-09] MEDS: BLOOD SUGAR DIAGNOSTIC STRIP TEST SCH ×3 (12:07→21:13)
[2018-06-09 20:00] VITALS: BP 121/67
[2018-06-09] MEDS: LIDOCAINE 5% PATCH TOP SCH (21:12)
[2018-06-10] MEDS: BLOOD SUGAR DIAGNOSTIC STRIP TEST SCH ×4 (06:08→21:00)
[2018-06-10] MEDS: ACETAMINOPHEN 325MG TABLET PO PRN (06:44)
[2018-06-10 08:00] VITALS: BP 111/50
[2018-06-10] MEDS: FAMOTIDINE 20MG TABLET PO SCH ×2 (08:45→22:01)
[2018-06-10] MEDS: ASCORBIC ACID 500 MG TABLET PO SCH (08:46)
[2018-06-10] MEDS: DOCUSATE SODIUM 100MG CAPSULE PO SCH ×2 (08:46→17:38)
[2018-06-10] MEDS: FERROUS SULFATE 325MG TABLET PO SCH ×3 (08:46→17:38)
[2018-06-10] MEDS: LOSARTAN POTASSIUM 50 MG TABLET PO SCH (08:49)
[2018-06-10] MEDS: TRAMADOL HCL/ACETAMINOPHEN 37.5/325MG TABLET PO SCH ×3 (08:49→17:40)
[2018-06-10] MEDS: AMLODIPINE 2.5MG TABLET PO SCH ×2 (08:54→21:00)
[2018-06-10] MEDS: BISACODYL 10MG SUPP PR SCH (08:55)
[2018-06-10] MEDS: INSULIN LISPRO 100 UNITS/ML SUBCUT SCH ×4 (08:56→21:00)
[2018-06-10] MEDS: POLYETHYLENE GLYCOL 3350 (17GM) 1 DOSE PACK PO SCH ×2 (08:57→17:38)
[2018-06-10 20:00] VITALS: BP 106/50
[2018-06-10] MEDS: LIDOCAINE 5% PATCH TOP SCH (22:11)
[2018-06-11] MEDS: BLOOD SUGAR DIAGNOSTIC STRIP TEST SCH ×3 (06:59→17:27)
[2018-06-11 07:00] VITALS: BP 112/50
[2018-06-11] MEDS: INSULIN LISPRO 100 UNITS/ML SUBCUT SCH ×3 (07:00→17:00)
[2018-06-11] MEDS: ACETAMINOPHEN 325MG TABLET PO PRN (07:08)
[2018-06-11] MEDS: AMLODIPINE 2.5MG TABLET PO SCH (08:24)
[2018-06-11] MEDS: LOSARTAN POTASSIUM 50 MG TABLET PO SCH (08:24)
[2018-06-11] MEDS: ASCORBIC ACID 500 MG TABLET PO SCH (08:25)
[2018-06-11] MEDS: FERROUS SULFATE 325MG TABLET PO SCH ×3 (08:25→17:23)
[2018-06-11] MEDS: DOCUSATE SODIUM 100MG CAPSULE PO SCH ×2 (08:25→17:23)
[2018-06-11] MEDS: POLYETHYLENE GLYCOL 3350 (17GM) 1 DOSE PACK PO SCH ×2 (08:26→17:00)
[2018-06-11] MEDS: FAMOTIDINE 20MG TABLET PO SCH (08:26)
[2018-06-11] MEDS: BISACODYL 10MG SUPP PR SCH (08:27)
[2018-06-11] MEDS: TRAMADOL HCL/ACETAMINOPHEN 37.5/325MG TABLET PO SCH ×3 (08:48→17:25)
[2018-06-11] MEDS ORDERED: ASCO500T20 PO (12:09)
[2018-06-11] MEDS ORDERED: POLY17PO3 PO (12:09)
[2018-06-11] MEDS ORDERED: FERR325T23 PO (12:09)
[2018-06-11] MEDS ORDERED: LOSA50TA3 PO (12:09)
[2018-06-11] MEDS ORDERED: AMLO2.5T45 PO (12:09)
[2018-06-11 14:40] VITALS: BP 122/65
[2018-06-11 14:55] VITALS: BP 122/65
[2018-06-11 17:25] VITALS: BP 136/64
== END 2018-06-11 18:00 | disposition home health service (06) | DRG 52 ==
PROVIDERS: ADMIT Physical Medicine & Rehabilitation Spinal Cord Injury Medicine; ATTEND Internal Medicine
DX: S14.109A Unspecified injury at unspecified level of cervical spinal cord, initial encounter (principal); G82.50 Quadriplegia, unspecified; J84.9 Interstitial pulmonary disease, unspecified; I47.1 Supraventricular tachycardia; E46 Unspecified protein-calorie malnutrition; G95.29 Other cord compression; M48.02 Spinal stenosis, cervical region; R53.81 Other malaise; R13.10 Dysphagia, unspecified; R26.9 Unspecified abnormalities of gait and mobility; M17.12 Unilateral primary osteoarthritis, left knee; M06.9 Rheumatoid arthritis, unspecified; M79.609 Pain in unspecified limb; M54.2 Cervicalgia; E11.9 Type 2 diabetes mellitus without complications; D64.9 Anemia, unspecified; M48.061 Spinal stenosis, lumbar region without neurogenic claudication; Z68.22 Body mass index [BMI] 22.0-22.9, adult; M47.9 Spondylosis, unspecified; Z79.4 Long term (current) use of insulin; Z98.1 Arthrodesis status; E61.1 Iron deficiency; M25.552 Pain in left hip; E55.9 Vitamin D deficiency, unspecified; F06.31 Mood disorder due to known physiological condition with depressive features; I10 Essential (primary) hypertension; I48.91 Unspecified atrial fibrillation; M54.10 Radiculopathy, site unspecified; Z79.899 Other long term (current) drug therapy; M16.0 Bilateral primary osteoarthritis of hip; M43.12 Spondylolisthesis, cervical region; R00.1 Bradycardia, unspecified; M85.80 Other specified disorders of bone density and structure, unspecified site
CPT/HCPCS: 36415; 72192; 73502; 73552; 73700; 80048; 80053; 80061; 81003; 82306; 82607; 82728; 82746; 82962; 83036; 83540; 83550; 83735; 84100; 84134; 84443; 84630; 85025; 87086; 92523; 92610; 93970; 97110; 97116; 97163; 97166; 97530; 97535; J1815; J2270; J3420; J3490; L0172

== ENCOUNTER 2018-07-03 15:58 | Emergency (ER) | payer MEDICARE, MEDICAID ==
[~2018-07-03 15:58] MED LIST: AMLO2.5T45 PO; ASCO500T20 PO; FERR325T23 PO; LOSA50TA3 PO; POLY17PO3 PO
== END 2018-07-03 19:10 | disposition left against medical advice (07) ==
LOC: ER 15:58
DX: Z53.21 Procedure and treatment not carried out due to patient leaving prior to being seen by health care provider (principal)